=== PATIENT | male | born 1995 | race Two or more races ===

== ENCOUNTER 2017-03-24 22:37 | Emergency (ER) | payer SELFPAY ==
[~2017-03-24] VITALS: Ht 177.8 cm; Wt 77.1 kg
[2017-03-24 22:52] VITALS: BP 126/81
[2017-03-24] MEDS: KETOROLAC TROMETHAMINE INJ 30 MG/ML VIAL IM ONE (23:00)
[2017-03-24] MEDS ORDERED: KETOROLAC TROMETHAMINE INJ 30 MG/ML VIAL ONE (23:04)
== END 2017-03-25 00:23 | disposition home or self-care (01) ==
LOC: ER 22:38
DX: M54.6 Pain in thoracic spine (principal); M25.511 Pain in right shoulder; V49.59XA Passenger injured in collision with other motor vehicles in traffic accident, initial encounter; Y93.89 Activity, other specified; Y92.413 State road as the place of occurrence of the external cause; Y99.8 Other external cause status
CPT/HCPCS: 71045; 73030; 96372; 99284; A4606; J1885; Z7610

== ENCOUNTER 2018-12-28 20:40 | Emergency (ER) | payer MEDICAID ==
[~2018-12-28] VITALS: Ht 170.2 cm; Wt 63.5 kg
[2018-12-28 20:44] VITALS: BP 141/74
[2018-12-28] MEDS ORDERED: LIDOCAINE 1%-EPI 1:100,000 20 ML VIAL ONE (21:13)
[2018-12-28] MEDS ORDERED: TDAP [DIPH/PERTUSSIS/TET] 0.5 ML VIAL IM ONE ×2 (21:30→21:51)
[2018-12-28] MEDS ORDERED: IBUPROFEN 600 MG TABLET PO ONE ×2 (21:30→21:49)
== END 2018-12-28 22:04 | disposition home or self-care (01) ==
LOC: ER 20:43
DX: L05.01 Pilonidal cyst with abscess (principal)
CPT/HCPCS: 10080; 90471; 90715; 99284; J3490

== ENCOUNTER 2018-12-30 20:13 | Emergency (ER) | payer MEDICAID ==
[~2018-12-30] VITALS: Ht 170.2 cm; Wt 67.1 kg
[2018-12-30 20:49] VITALS: BP 136/76
--- NOTE | 2018-12-30 21:30 | NUR ---
Received patient from home with midline sacral abcess noted. Mixed serroussanguinous and purulent discharge noted. Place on supine position comfortably.
--- NOTE | 2018-12-30 21:35 | NUR ---
Seen and examined by MD with orders noted and carried out.
--- NOTE | 2018-12-30 21:41 | NUR ---
WOUND CARE DONE ORDERED. PACKED WITH GAUZE ORDERED. WOUND CARE INSTRUCTIONS GIVEN TO PATIENT.
== END 2018-12-30 21:44 | disposition home or self-care (01) ==
LOC: ER 20:13
DX: Z48.01 Encounter for change or removal of surgical wound dressing (principal); L05.01 Pilonidal cyst with abscess